=== PATIENT | female | born 1950 | race Caucasian/White ===

== ENCOUNTER → 2017-12-27 | Outpatient (CLI) | payer MEDICARE, OTHER ==
[~2017-12-27] MED LIST: AMLO5 PO; ASPI81EC PO; HYDACE5 PO; HYDCHL25 PO; LOVA40 PO; MULVITMINF PO; OMEP20ER PO; ONDA4 PO; RANI150 PO; RXOXYACE PO; RXPROM25 PO; TRAM50 PO; VALS80 PO
== END | disposition home or self-care (01) ==
LOC: LAB 10:35 → LAB SHORT 10:35
PROVIDERS: Obstetrics & Gynecology
DX: Z08 Encounter for follow-up examination after completed treatment for malignant neoplasm (principal); Z85.42 Personal history of malignant neoplasm of other parts of uterus
CPT/HCPCS: 88142

== ENCOUNTER 2018-10-17 20:34 | Emergency (ER) | payer MEDICARE, OTHER ==
[~2018-10-17] VITALS: Ht 154.9 cm; Wt 68.0 kg
== END 2018-10-17 21:13 | disposition home or self-care (01) ==
LOC: ER 20:34
DX: J02.9 Acute pharyngitis, unspecified (principal); Z79.899 Other long term (current) drug therapy; Z79.82 Long term (current) use of aspirin; Z79.891 Long term (current) use of opiate analgesic; K21.9 Gastro-esophageal reflux disease without esophagitis
CPT/HCPCS: 96361; 96374; 96375; 99284-25

== ENCOUNTER → 2019-01-09 | Outpatient (CLI) | payer MEDICARE, OTHER ==
[2019-01-14 06:50] LABS: TEST ORDERED: PAP WO
== END | disposition home or self-care (01) ==
LOC: LAB SHORT 12:03 → LAB 12:03
PROVIDERS: Obstetrics & Gynecology
DX: Z09 Encounter for follow-up examination after completed treatment for conditions other than malignant neoplasm (principal); Z92.89 Personal history of other medical treatment
CPT/HCPCS: G0123